=== PATIENT | female | born 1990 | race Caucasian/White ===

== ENCOUNTER → 2021-05-27 12:46 | Outpatient (CLI) | payer OTHER, SELFPAY ==
--- NOTE | ~2021-05-27 | US_ITS ---
EXAMINATION: US OB /maternal detail EXAM DATE: 05/27/2021 13:36 INDICATION: Anatomy. 2nd trimester. TECHNIQUE: Pelvic obstetrical transabdominal sonogram was performed by a technologist. There are mu ltiple grayscale and Doppler images available for interpretation. There are no earlier studies of is gestation for comparison. FINDINGS: There is a single fetus identified in vertex presentation with a heart rate of 146 beats pe r minute. The placenta is located in the posterior position. There is no sonographic evidence of ret roplacental hemorrhage identified. There is subjectively expected amount of amniotic fluid. Placenta l margin to internal cervical os distance is 5.5 cm. BIOMETRIC DATA: Biparietal diameter (BPD): 4.5 cm ----------------> 19 weeks 4 days. Head circumference (HC): 17.1 cm ----------------> 19 weeks 5 days. Abdominal circumference (AC): 14.6 cm ----------> 19 weeks 6 days. Femur length (FL): 2.9 cm --------------------------> 18 weeks 5 days. These measurements are concordant. HC/AC ratio is 1.17 (The 5th -- 95th percentile range is 1.08-1.26. Estimated weight is 292 g +/- 44 g. This is the 23rd percentile when the currently reported cl inical gestation age 19 weeks 6 days, clinical estimated date of delivery (ALESIA-OPE) 10/15 is used. Fet al estimated gestational age based on measurements from this exam is 19 weeks 3 days, with an estimat ed date of delivery (ALESIA-AUA) 10/18. ANATOMIC SURVEY: The following anatomy suboptimally visualized: Cranium, cerebellum, lips, cervical spine due to positioning. Cardiac views. The following anatomy is identified and is sonographically normal in appearance: Nuchal fold Thoracolumbar spine Diaphragm Stomach Kidneys Bladder Three-vessel cord Cord insertion Extremities IMPRESSION: 1. Single fetus in vertex presentation with heart rate 146 beats per minute. 2. Estimated weight of 292 grams, 23rd percentile using the currently reported clinical gestat ion age of 19 weeks 6 days, ALESIA(OPE) 10/15. 3. Incomplete anatomic survey. Reviewed, dictated and finalized at location G. TER OPERATOR IMPRESSION: 1. Single fetus in vertex presentation with heart rate 146 beats per minute. 2. Estimated weight of 292 grams, 23rd percentile using the currently re ported clinical gestation age of 19 weeks 6 days, ALESIA(OPE) 10/15. 3. Incomplete anatomic survey.
== END ==
PROVIDERS: Visit Provider Nurse Practitioner
DX: Z34.92 Encounter for supervision of normal pregnancy, unspecified, second trimester (principal); Z3A.19 19 weeks gestation of pregnancy
CPT/HCPCS: 76805

== ENCOUNTER → 2021-06-23 09:48 | Outpatient (CLI) | payer OTHER, SELFPAY ==
--- NOTE | ~2021-06-23 | US_ITS ---
EXAMINATION: US OB follow up DATE: 06/23/2021 10:21 INDICATION: Second trimester anatomic survey follow-up TECHNIQUE: Real-time ultrasound of the pelvis was performed. The interpreting radiologist was not pre sent for the study. COMPARISON: 05/27/2021 FINDINGS: There is a single living fetus in breech presentation. The placenta is posterior and 5.3 cm from the internal cervical os. cardiac activity and movement are noted. heart rate is 130 beats per minute (bpm). The amniotic fluid index is subjectively normal. The intracrani al structures, upper lip, spine, and heart appear normal. The following biometric data were obtained: Biparietal diameter (BPD): 5.3 cm; head circumference (HC): 19.7 cm; abdominal circumference (AC): 17 .3 cm; femur length (FL): 4.1 cm. These measurements are concordant. Estimated weight is 521 g +/- 78 g, which correlates with the 16th percentile when 10/18/2021 is used as estimated date of delivery. As single measurements, these parameters are each equal to the following estimated gestational ages w ith ranges of +/- 2 standard deviations: BPD: 22 weeks 1 days ( 20 weeks 3 days - 23 weeks 6 days). HC: 22 weeks 0 days ( 20 weeks 3 days - 23 weeks 3 days). AC: 22 weeks 2 days ( 20 weeks 1 days - 24 weeks 2 days). FL: 23 weeks 3 days ( 21 weeks 4 days - 25 weeks 1 days). estimated gestational age based solely on measurements from this exam is 22 weeks 3 days +/- 1 weeks 4 days. IMPRESSION: 1. Single living fetus in breech presentation. 2. Estimated weight is 521 g +/- 78 g, which correlates with the 16th percentile when 10/18/2021 is used as estimated date of delivery. 3. Normal-appearing anatomy not visualized on prior ultrasound. Reviewed, dictated and finalized at location A. ACK IMPRESSION: 1. Single living fetus in breech presentation. 2. Estimated weight is 521 g +/- 78 g, which correlates with the 16th per centile when 10/18/2021 is used as estimated date of delivery. 3. Normal-appearing anatomy not visualized on prior ultrasound.
== END ==
PROVIDERS: Visit Provider Obstetrics & Gynecology Gynecology
DX: Z34.92 Encounter for supervision of normal pregnancy, unspecified, second trimester (principal); Z3A.22 22 weeks gestation of pregnancy
CPT/HCPCS: 76816

== ENCOUNTER 2021-07-23 08:02 | Outpatient (CLI) | payer OTHER, SELFPAY ==
[2021-07-23 09:25] LABS: Hematocrit 31.2 % (37.0-47.0); Hemoglobin 10.4 g/dL (12.0-15.0)
[2021-07-23 09:53] LABS: Glucose 1 Hour PP 50gm Dose 126 mg/dL
[2021-07-23 10:15] LABS: Vitamin D 25 Hydroxy 59.7 ng/mL
[2021-07-23 10:35] LABS: HIV 1/2 Ab P24 Ag Result Negative (Negative)
[2021-07-23] MEDS: RHO(D) IMMUNE GLOBULIN 300 MCG/2 ML SYRINGE IM (16:23)
== END 2021-07-23 08:03 | disposition home or self-care (01) ==
LOC: ANHLAB 08:04
PROVIDERS: Visit Provider Obstetrics & Gynecology Gynecology
DX: O36 Maternal care for other fetal problems (principal); Z3A.27 27 weeks gestation of pregnancy
CPT/HCPCS: 36415; 82306; 82947; 85014; 85018; 85461; 86703; 90384; G0432; J2790

== ENCOUNTER 2021-10-05 01:25 | Observation (INO) | payer OTHER, SELFPAY ==
[2021-10-05 01:25] VITALS: BMI 26.9
[2021-10-05 01:43] VITALS: BP 114/69; PULSE 95
[2021-10-05 02:00] VITALS: BP 120/68; PULSE 89
[2021-10-05 02:04] LABS: Creatinine Urine 32.5 mg/dL; Total Protein Urine Random 12 mg/dL; Ur Ttl Prot Creatinine Ratio 0.37 mg/mg (0-0.20)
[2021-10-05 02:05] LABS: Basophils Percent Auto 0.3 % (0.2-1.2); Eosinophils Absolute Auto 0.4 K/mm3 (0-0.3); Eosinophils Percent Auto 4.2 % (0-4.4); Hematocrit 34.4 % (37.0-47.0); Hemoglobin 11.5 g/dL (12.0-15.0); Immature Granulocyte Absolute 0.03 K/mm3 (0.00-0.031); Immature Granulocyte Percent A 0.3 % (0-0.5); Lymphocytes Absolute Auto 2.95 K/mm3 (0.9-3.2); Lymphocytes Percent Auto 34.3 % (18.3-44.2); Mean Corpuscular HGB Conc 33.4 g/dl (32-36); Mean Corpuscular Hemoglobin 29.7 pg (26-34); Mean Corpuscular Volume 88.9 fl (80-100); Mean Platelet Volume 10.8 fl (7.4-10.4); Monocytes Absolute Auto 0.5 K/mm3 (0.1-0.6); Monocytes Percent Auto 6.2 % (2.6-8.5); Neutrophils Absolute Auto 4.7 K/mm3 (1.3-6.7); Neutrophils Percent Auto 54.7 % (45.5-73.1); Platelet Count Result 218 k/mm3 (150-375); Red Blood Count 3.87 M/mm3 (4.2-5.4); White Blood Count 8.6 K/mm3 (4.5-10.0)
[2021-10-05 02:06] LABS: Appearance Urine Clear (Clear); Bilirubin Urine Negative (Negative); Blood Urine Negative (Negative); Color Urine Yellow (Yellow); Glucose Urine UA Negative (Negative); Ketones Urine Negative (Negative); Leukocyte Esterase Ur Negative LEU/UL (NEGATIVE); Nitrate Urine Negative (Negative); Protein Urine Negative (Negative); Specific Grav Ur 1.015 (1.001-1.035); Urobilinogen Urine 0.2 mg/dL (<2.0)
[2021-10-05 02:07] LABS: Alanine Aminotransferase 13 U/L (6-35); Albumin Level 3.7 g/dL (3.5-5.1); Alkaline Phosphatase 165 U/L (38-126); Anion Gap 3 mmol/L (8-16); Aspartate Amino Transferase 23 U/L (14-36); Bilirubin,Total 0.1 mg/dL (0.2-1.3); Blood Urea Nitrogen 9 mg/dL (7-17); Calcium 9.6 mg/dL (8.4-10.2); Carbon Dioxide 23 mmol/L (22-30); Chloride 107 mmol/L (98-107); Estimated Glomerular Filt Rate > 60; Glucose 86 mg/dL (65-110); Potassium 3.8 mmol/L (3.4-5.0); Sodium 133 mmol/L (137-145); Uric Acid 4.7 mg/dL (2.5-7.5)
[2021-10-05 02:15] VITALS: BP 114/67; PULSE 82
[2021-10-05 02:20] LABS: Bacteria Urine Trace /hpf; RBC Urine 0-2 /hpf (0-2); Squamous Epithelial Cell Urine Few /hpf (Few); WBC Urine 0-3 /hpf (0-3)
[2021-10-05 02:30] VITALS: BP 115/71; PULSE 101
[2021-10-05 02:45] VITALS: BP 114/71; PULSE 93
[2021-10-05 02:48] LABS: Add Urine Microscopic? NO
--- NOTE | 2021-10-05 03:00 | OBADM ---
This patient, Janessa Issa, admitted to the OB room OB Post 117 for observation. Patient/family oriented to hospital policies and general routines including ID bracelet, bed and alarms, visiting hours, pain management, procedures, bathroom and other care routines, personal items, smoking policy, room service/diet, and visiting hours. Patient/Family are encouraged to report perceived risks to care and to ask questions if they do not understand what they are told or what they should do.
[2021-10-05] MEDS: diphenhydrAMINE HCl CAP 25 MG CAPSULE PO (03:09)
--- NOTE | 2021-10-08 08:38 | PM.OBTRLD ---
OB - Triage/Final Diagnosis Visit Information Reason for evaluation: threatened labor Comments/Additional reasons for admission: I have assessed the risk for this patient, Janessa Issa, and determined that she would benefit from observation care. Evaluation Laboratory results: Laboratory Tests 10/05/21 10/05/21 10/05/21 01:48 01:48 01:48 WBC 8.6 RBC 3.87 L Hgb 11.5 L Hct 34.4 L MCV 88.9 MCH 29.7 MCHC 33.4 RDW 13.0 Plt Count 218 MPV 10.8 H Immature Gran % (Auto) 0.3 Neut % (Auto) 54.7 Lymph % (Auto) 34.3 Oliver % (Auto) 6.2 Eos % (Auto) 4.2 Baso % (Auto) 0.3 Lymph # (Auto) 2.95 Oliver # (Auto) 0.5 Eos # (Auto) 0.4 H Baso # (Auto) 0.0 Abs Immat Gran (auto) 0.03 Absolute Neuts (auto) 4.7 Absolute Nucleated RBC 0.0 Nucleated RBC % 0.0 Sodium Potassium Chloride Carbon Dioxide Anion Gap BUN Creatinine Estim Creat Clear Calc Estimated GFR Glucose Uric Acid Calcium Total Bilirubin AST ALT Alkaline Phosphatase Total Protein Albumin Urine Color Yellow Urine Appearance Clear Urine pH 7.0 Ur Specific Guinda 1.015 Urine Protein Negative Urine Glucose (UA) Negative Urine Ketones Negative Ur Blood (Man) Negative Urine Nitrate Negative Urine Bilirubin Negative Urine Urobilinogen 0.2 Ur Leukocyte Esterase Negative Urine RBC 0-2 Urine WBC 0-3 Ur Squamous Epith Cells Few Urine Bacteria Trace U Random Total Protein 12 Urine Creatinine 32.5 Protein/Creat Ratio 2 0.37 H 10/05/21 01:48 WBC RBC Hgb Hct MCV MCH MCHC RDW Plt Count MPV Immature Gran % (Auto) Neut % (Auto) Lymph % (Auto) Oliver % (Auto) Eos % (Auto) Baso % (Auto) Lymph # (Auto) Oliver # (Auto) Eos # (Auto) Baso # (Auto) Abs Immat Gran (auto) Absolute Neuts (auto) Absolute Nucleated RBC Nucleated RBC % Sodium 133 L Potassium 3.8 Chloride 107 Carbon Dioxide 23 Anion Gap 3 L BUN 9 Creatinine 0.40 L Estim Creat Clear Calc Not Reportable Estimated GFR > 60 Glucose 86 Uric Acid 4.7 Calcium 9.6 Total Bilirubin 0.1 L AST 23 ALT 13 Alkaline Phosphatase 165 H Total Protein 7.0 Albumin 3.7 Urine Color Urine Appearance Urine pH Ur Specific Guinda Urine Protein Urine Glucose (UA) Urine Ketones Ur Blood (Man) Urine Nitrate Urine Bilirubin Urine Urobilinogen Ur Leukocyte Esterase Urine RBC Urine WBC Ur Squamous Epith Cells Urine Bacteria U Random Total Protein Urine Creatinine Protein/Creat Ratio 2
[2021-10-10 10:22] LABS: Chenodeoxycholic Acid <0.5 umol/L (< OR = 3.9); Cholic Acid 0.6 umol/L (< OR = 2.8); Deoxycholic Acid <0.5 umol/L (< OR = 2.3); Total Bile Acids <1.5 umol/L (< OR = 8.3)
== END 2021-10-05 03:10 | disposition home or self-care (01) ==
PROVIDERS: Admitting Provider Obstetrics & Gynecology; Visit Provider Obstetrics & Gynecology
DX: O47.9 False labor, unspecified (principal); Z3A.00 Weeks of gestation of pregnancy not specified
CPT/HCPCS: 36415; 80053; 81003; 82542; 82570; 84156; 84550; 85025; 87086; A9270; G0378; G0379

== ENCOUNTER 2021-10-05 20:58 | Inpatient (IN) | payer OTHER, SELFPAY ==
[2021-10-05 21:20] VITALS: BP 123/82; PULSE 137
[2021-10-05 21:25] VITALS: BMI 27.2
[2021-10-05 21:30] VITALS: BP 109/76; PULSE 140
[2021-10-05 21:45] VITALS: BP 118/75; PULSE 123
[2021-10-05 22:00] VITALS: TEMP 36.9
[2021-10-05] MEDS: DINOPROSTONE 10 MG VAG INSERT VAGINAL (22:05)
[2021-10-05 22:06] LABS: Basophils Percent Auto 0.2 % (0.2-1.2); Eosinophils Absolute Auto 0.1 K/mm3 (0-0.3); Hematocrit 35.3 % (37.0-47.0); Hemoglobin 11.5 g/dL (12.0-15.0); Immature Granulocyte Absolute 0.05 K/mm3 (0.00-0.031); Immature Granulocyte Percent A 0.5 % (0-0.5); Lymphocytes Absolute Auto 2.04 K/mm3 (0.9-3.2); Lymphocytes Percent Auto 19.3 % (18.3-44.2); Mean Corpuscular HGB Conc 32.6 g/dl (32-36); Mean Corpuscular Hemoglobin 29.9 pg (26-34); Mean Corpuscular Volume 91.7 fl (80-100); Mean Platelet Volume 10.8 fl (7.4-10.4); Monocytes Absolute Auto 0.4 K/mm3 (0.1-0.6); Monocytes Percent Auto 3.5 % (2.6-8.5); Neutrophils Percent Auto 75.5 % (45.5-73.1); Platelet Count Result 209 k/mm3 (150-375); Red Blood Count 3.85 M/mm3 (4.2-5.4); Red Cell Distribution Width 13.1 % (11.5-14.5); White Blood Count 10.6 K/mm3 (4.5-10.0)
[2021-10-05] MEDS: hydrOXYzine pamoate 25 MG CAPSULE PO (22:16)
[2021-10-05 23:00] VITALS: BP 103/50; PULSE 120
[2021-10-06] VITALS (191 sets, daily range): BP systolic 80–150; BP diastolic 46–134; PULSE 83–169; RESP 16; TEMP 36.3–38.3; O2SAT 94–100
--- NOTE | 2021-10-06 00:42 | WPDANESEPP ---
Anes - Eval Pre Procedure Procedure: LAbor epidural Date/Time: 10/06/21 00:42 Surgeon: Maritza Preop Diagnosis: Abd pain with contractions Pre Op Diagnosis: IOL- Cholestasis Patient Data Age: 31 Gender: F Height: 1.63 m Weight: 72 kg Last Vital Signs Temp 98.5 F 10/05/21 22:00 Pulse 113 H 10/06/21 00:00 BP 94/49 L 10/06/21 00:00 O2 Del Method Room Air 10/05/21 21:25 Allergies Allergy/AdvReac Type Severity Reaction Status Date / Time No Known Allergies Allergy Verified 09/26/21 12:49 Home Medications Medication Instructions Recorded Confirmed Type ergocalciferol (vitamin D2) 1,250 1,250 mcg PO WEEKLY 09/26/21 09/26/21 History mcg (50,000 unit) capsule (Vitamin D2) ferrous sulfate 1 tab-cap PO DAILY 09/26/21 10/05/21 History prenat.vits,paco,cqi-tatk-zspxc 1 tablet PO DAILY 09/26/21 09/26/21 History Laboratory Tests 10/05/21 10/05/21 10/05/21 21:21 21:21 21:21 WBC 10.6 K/mm3 H K/mm3 (4.5-10.0) RBC 3.85 M/mm3 L M/mm3 (4.2-5.4) Hgb 11.5 g/dL L g/dL (12.0-15.0) Hct 35.3 % L % (37.0-47.0) MCV 91.7 fl fl (80-100) MCH 29.9 pg pg (26-34) MCHC 32.6 g/dl g/dl (32-36) RDW 13.1 % % (11.5-14.5) Plt Count 209 k/mm3 k/mm3 (150-375) MPV 10.8 fl H fl (7.4-10.4) Immature Gran % (Auto) 0.5 % % (0-0.5) Neut % (Auto) 75.5 % H % (45.5-73.1) Lymph % (Auto) 19.3 % % (18.3-44.2) Braxton % (Auto) 3.5 % % (2.6-8.5) Eos % (Auto) 1.0 % % (0-4.4) Baso % (Auto) 0.2 % % (0.2-1.2) Lymph # (Auto) 2.04 K/mm3 K/mm3 (0.9-3.2) Braxton # (Auto) 0.4 K/mm3 K/mm3 (0.1-0.6) Eos # (Auto) 0.1 K/mm3 K/mm3 (0-0.3) Baso # (Auto) 0.0 K/mm3 K/mm3 (0.0-0.1) Abs Immat Gran (auto) 0.05 K/mm3 H K/mm3 (0.00-0.031) Absolute Neuts (auto) 8.0 K/mm3 H K/mm3 (1.3-6.7) Absolute Nucleated RBC 0.0 K/mm3 K/mm3 (0.0-0.012) Nucleated RBC % 0.0 % % (0.0-0.2) RPR Pending Blood Type B Negative Antibody Screen Positive Antibody Identification Pending Antigen Identification Pending TAMMY, IgG Interpret Pending TAMMY, Poly Interpret Pending TAMMY, Complement Interp Pending Patient hx anesthesia problems: none Family hx anesthesia problems: none Results Review: All pre-operative results and documents have been reviewed as part of the pre-operative evaluation. [facility] Past Medical History Medical History Anxiety and depression Asthma Overweight (BMI 25.0-29.9) and not yet delivered Family History Family History Mother Cervical cancer Father Psoriasis Grandparent Diabetes mellitus Social History Social History Smoking status: Never smoker Second hand tobacco smoke exposure: No Substance use: never Spiritual care concerns: Yes (Pt would like to see deputy probation officer) Exam Day of Procedure 10/06/21 00:42 Patient weight: overweight Heart: regular rate and rhythm Lungs: clear to auscultation and normal air movement Airway: Mallampati scale class II Neurological: alert and oriented
[2021-10-06] MEDS: LACTATED RINGERS 1,000 ML 125 ML IV CONT ×2 (00:49→08:58)
--- NOTE | 2021-10-06 08:08 | WPDOBADMIT ---
Obstetrics - Admit Note Admission Note: record reviewed. No pertinent additions to the history and/or any subsequent changes in the physical findings that are not consistent with the expected course of the were found. Additions to the history and/or subsequent changes in the physical findings follow. Patient with cholestasis of admitted for medical induction of labor last evening. Cervidil was placed last evening and patient has been ronit throughout the night. Cervix this morning is 1/50 and -1. Cervidil was removed and AROM is performed with clear fluid. heart tones are category 1.
[2021-10-06] MEDS: OXYTOCIN 30 UNITS/NS 500 ML 30 UNITS/500 ML BAG 6 UNITS IV CONT (08:58)
[2021-10-06 11:46] LABS: Rapid Plasma Reagin Non-Reactive (NonReactive)
[2021-10-06] MEDS: AMPICILLIN 2 GM/NS 100 ML 2 GM/100 ML BAG IVPB (16:50)
[2021-10-06] MEDS: GENTAMICIN 60 MG/50 ML NS 60 MG/50 ML BAG 100 MG IVPB (17:15)
--- NOTE | 2021-10-06 20:14 | PM.OBPRVD ---
OB - Delivery Note Procedure Delivery date: 10/06/21 Events: Other (cholestasis of ) Induction method: AROM, Per Pitocin Protocol and Per Cervidil Protocol Delivery monitor: External FHT and Internal Uterine Route of delivery: Laceration Description: Perineal - 1st Degree Delivery repair: vicryl (3-0) Specimen: No Quantitative Blood Loss (ml): 50 Anesthesia type: Epidural Disposition: Floor [place] Baby Date of : 10/06/21 Weeks of gestation at delivery: 38 gender: Male presentation: vertex position: Right Occiput Anterior Placenta delivery description: Spontaneous Cord Vessel Description: 3 Vessels score one minute: 8 score five minutes: 9
--- NOTE | 2021-10-06 20:17 | PM.OBDSVD ---
DS: Admitting Diagnosis Discharge Date 10/08/21 Admitting Diagnosis IUP 38 5/7 wks cholestasis DS: Discharge Diagnosis Discharge Diagnosis (1) Cholestasis during : Code(s): O26.619 - Liver and biliary tract disorders in , unspecified trimester; K83.1 - Obstruction of bile duct Status: Acute (2) (normal spontaneous vaginal delivery): Code(s): O80 - Encounter for full-term uncomplicated delivery Status: Acute (3) 38 weeks gestation of : Code(s): Z3A.38 - 38 weeks gestation of Status: Acute OB - DS: Summary OB Procedures : NST and Ultrasound OB Procedures Intrapartum: Spontaneous Vag Delivery OB Procedures: : None Peripartum Data Infant Delivery Method: Natural Vaginal Laceration Description: Perineal - 1st Degree complications: none Status at Discharge Functional status at discharge: independent ambulation Overall status at discharge: patient is progressing back to baseline Time Spent with Patient Time attestation: Total time spent providing and/or coordinating discharge services: DS: Data Data Completed and Pending Labs on day of discharge: Labs from last 24 hours 10/05/21 10/05/21 10/05/21 21:21 21:21 21:21 WBC 10.6 H RBC 3.85 L Hgb 11.5 L Hct 35.3 L MCV 91.7 MCH 29.9 MCHC 32.6 RDW 13.1 Plt Count 209 MPV 10.8 H Immature Gran % (Auto) 0.5 Neut % (Auto) 75.5 H Lymph % (Auto) 19.3 Logan % (Auto) 3.5 Eos % (Auto) 1.0 Baso % (Auto) 0.2 Lymph # (Auto) 2.04 Logan # (Auto) 0.4 Eos # (Auto) 0.1 Baso # (Auto) 0.0 Abs Immat Gran (auto) 0.05 H Absolute Neuts (auto) 8.0 H Absolute Nucleated RBC 0.0 Nucleated RBC % 0.0 RPR Non-reactive Blood Type B Negative Antibody Screen Positive Antibody Identification Passive Due to RH Imm Glob Antigen Identification Cancelled TAMMY, IgG Interpret Negative TAMMY, Poly Interpret Negative TAMMY, Complement Interp Not Performed Discharge Plan Discharge Attending physician on discharge: Jeri Salas Discharging Clinician: Jrei Salas Anticipated Discharge Date/Time: 10/08/21 20:18 Patient Disposition: Home, Self-Care Activity: may shower and pelvic rest Diet: regular Discharge Instructions: Education: Mom and Baby Guide Given to: Follow-Up: Call your delivering provider's office for an appointment to be seen in: [facility]. Appointment Date/Time: at 10/09/21 @1230 What to expect at your follow-up visit: blood pressure check Call [phone] if you are unable to keep your appointment time. BREAST CARE: * Wear a snug supportive bra. * For engorgement discomfort: Breast Feeding: * Apply warm moist washcloths * Express milk as needed to relieve engorgement * Wear loose clothing Bottle Feeding: * May apply ice packs * For sore nipples: * Identify correct latch-on * Apply warm moist washcloths before and after nursing * Air dry nipples after nursing * May apply Lansinoh cream to nipples PERINEAL CARE: * Until bleeding stops, use your olu bottle after urinating * Change your pad frequently throughout the day * You may take sitz baths several times a day (fill your bathtub with warm water and soak for 20 minutes.) Do NOT bathe in the water * No tub baths until seen by your physician - You may shower ACTIVITY: * Rest as much as possible. * Do not exercise or lift anything heavier than your baby (such as laundry or other children.) * Avoid stairs or driving as much as possible. * Do not put anything into the vagina. No douching, tampons, or sexual activity until seen by physician. NOTIFY PHYSICIAN IF YOU HAVE ANY QUESTIONS OR IF ANY OF THE FOLLOWING S
[2021-10-06] MEDS: OXYTOCIN 30 UNITS/NS 500 ML 30 UNITS/500 ML BAG 125 UNITS IV CONT (20:25)
[2021-10-06] MEDS: IBUPROFEN 600 MG TABLET PO (22:15)
[2021-10-06] MEDS: hydrOXYzine pamoate 25 MG CAPSULE PO (23:17)
[2021-10-06] MEDS: WITCH HAZEL 40 PADS 1 PAD TOPICAL (23:17)
[2021-10-06] MEDS: BENZOCAINE 20% AER SPR (*SP) 56 GM CAN 1 SPRAY TOPICAL (23:17)
[2021-10-07] MEDS: IBUPROFEN 600 MG TABLET PO ×3 (04:46→19:15)
[2021-10-07] MEDS: hydrOXYzine pamoate 25 MG CAPSULE PO ×3 (04:47→17:30)
[2021-10-07 05:20] LABS: Hematocrit 32.9 % (37.0-47.0)
--- NOTE | 2021-10-07 07:00 | PC.NURSE ---
PT introductions made and plan of care discussed per post , pain management, breast feeding, daily care activities. PT and spouse both recipients of such instructions. No barriers to learning identified at this time. PT received such instructions this shift via one to one discussion, mom baby care guide and demonstrations. PT verbalized understanding of such care.
--- NOTE | 2021-10-07 07:31 | P.PNOB_ITS ---
OB - PN: Subj Subjective Date/time seen: 10/07/21 07:21 Patient comments: pain well controlled and other (hives) baby status: doing well, nursing well and other (Reported episode of turning blue while overnight. ) [facility] feeding status: exclusively breast feeding OB - PN: Obj Data Labs CBC & Chem 7: 10/07/21 02:31 Labs: Laboratory Results - last 24 hr 10/05/21 10/07/21 21:21 02:31 Hgb 11.0 L Hct 32.9 L RPR Non-reactive OB - PN A/P Plan day: 1 Plan: routine care Time Spent With Patient Time: Total time spent is greater than 50% in coordination of care (as documented) at patient's floor/unit and/or counseling patient: Review of Systems Review of Systems: All systems reviewed & are unremarkable except as noted in HPI and below Integumentary/Breasts: Skin/Breast: Reports pruritus and Reports other Comments: edema to hands and feet Exam Narrative: Alert and oriented. Mood is pleasant and cooperative. Urinating without difficulty. Denies passing any large clots. Perineum with minimal edema. Const: General: no acute distress Orientation/consciousness: patient oriented x3 Limitations: no limitations Resp: Effort & Inspection: normal respiratory effort Cardio: Rate: regular rate GI: Inspection: normal to inspection Skin: Rashes: other (hives to left knee, upper left thigh, neck, and back. ) Neuro: General: patient oriented x3 Extrem: General: normal to inspection, no calf tenderness, pedal edema (1+) and other (1+ edema to hands, wrists) Psych: Appearance: grossly normal Mental Status: mental status grossly normal Affect: normal affect Thought process: Normal thought process present
[2021-10-07 08:00] VITALS: BP 109/62; PULSE 94; RESP 18; TEMP 36.4; O2SAT 98
--- NOTE | 2021-10-07 08:34 | WPDANLDPN2 ---
Anes-Prog Note L&D Date/Time: 10/07/21 08:34 Comfortable throughout: labor and delivery Neuraxial method: epidural Epidural/Spinal procedure site: clean & non-tender Neuro status: Neuro function grossly intact. Cardiovascular status: normal Respiratory status: normal Airway patency: baseline Mental status: baseline Post-Op hydration status: normal Vital Signs: Last Vital Signs Temp 36.3 C L 10/06/21 23:50 Pulse 100 10/06/21 23:50 Resp 16 10/06/21 23:50 BP 122/72 10/06/21 23:50 Pulse Ox 97 10/06/21 19:59 O2 Del Method Room Air 10/05/21 21:25 Pain score (VAS): 2 I/O: Intake & Output 10/06/21 10/07/21 10/07/21 23:59 07:59 15:59 Intake Total 1400 Output Total 102 Balance 1298 Post-procedural complaints: none Patient feedback: Patient satisfied with anesthetic care.
[2021-10-07] MEDS: LORATADINE 10 MG TABLET (08:46)
[2021-10-07] MEDS: ACETAMINOPHEN 325 MG TABLET 650 MG PO ×2 (09:04→17:28)
[2021-10-07] MEDS: DOCUSATE SODIUM 100 MG CAPSULE PO ×2 (09:06→17:30)
[2021-10-07] MEDS: MULTIVIT/MIN/PREN/FOL AC/IRON TABLET 1 TAB PO (09:07)
[2021-10-07] MEDS: LANOLIN (LANSINOH) 7.5 GM CREAM 1 APPLIC TOPICAL (09:08)
--- NOTE | 2021-10-07 12:32 | PC.NURSE ---
[id number] Introductions were made, then consulted with patient to assess needs related to . Mother led the conversation with her experience feeding her so far. Mother works well with her with encouragement and education. Encouraged understanding of the benefits of skin to skin (unwrapping and placing vertically on her chest), responsive feeding and how to watch for early feeding signs, frequency of feeding on demand about every 8-12 times in 24 hours (every 2-3 hours), milk production, duration of feeding, signs of adequate intake/output and how to record on the feeding sheet. Reviewed positioning and ear, shoulder, hip alignment, supporting the breast, asymmetrical latch (off-center), and leading with the chin with a big open side gape. Infant latched optimally to the left breast in cross cradle position. Education given to mother of how to visualize suck/swallow ratios and drinking at the breast. was able to maintain latch without discomfort to mother. Mother voiced that the latch was more comfortable than before and wasn't' sure if it was pinchy or tender from previous nursing. Infant has lips flanged, nice rounded cheek line, rocking motion with nursing, good positioning skin to skin and close to mother's body with chin buried into the breast, nose near the breast with appropriate suck/swallow pause ratios visualized. Nipple care reviewed with optimal latch, good positioning and practice changing positions. Reviewed good handwashing when or touching the breast/nipples to prevent infection. Resources used to facilitate learning were used with the visual handouts/mom and baby guide. Mother voiced understanding of responsive feedings, stimulating with skin to skin, hand expressed colostrum, touch, talking to infant to encourage if it has been 2 -3 hours since the start of the last , to call if does not latch or there is discomfort with . Father of baby is actively involved. Reported to the primary RN
[2021-10-07 12:49] VITALS: BP 85/54; PULSE 94; RESP 16; TEMP 36.6; O2SAT 98
--- NOTE | 2021-10-07 14:30 | PC.NURSE ---
[id number] Consulted with patient to assess needs related to . Mother led conversation with her experience with feeding baby so far and is having difficulty getting to wake and breastfeed. Reviewed tips and techniques to stimulate infant to wake and breastfeed. Mother works well with her infant with encouragement. Reviewed working with infant, breast, nipples and how to protect the nipples with an optimal deep latch, good positioning, and good hand washing. Encouraged understanding the benefits of skin to skin, responding to feeding cues, frequencies of feeding 8-12 times in 24 hours (approximately 2-3 hours), duration of feedings, milk production, intake/output feeding sheet and signs of adequate intake encouraging swallowing at the breast. Reviewed positioning and alignment, supporting breast, off-centered (asymmetrical latch) and leading with the chin with big open wide gape. latched optimally to the right breast in cross cradle position. Education given to mother of how to visualize suck/swallow ratios and drinking at the breast. Infant was able to maintain latch without discomfort to mother. Nipple care reviewed with optimal latch and good positioning, comfort, healing with warm, wet washcloth to rinse breast, then leave open to air-dry, colostrum may be left on nipples to dry but have clean hands when touching the nipple/breast as needed. Mother voiced understanding of the education shared, calling for assistance if the does not latch or if there is discomfort with . Reported to the primary RN
[2021-10-07 15:00] VITALS: BP 85/54; PULSE 94; RESP 16; TEMP 36.6; O2SAT 98
[2021-10-07] MEDS: methylPREDNISolone (MEDROL) DOSEPACK 4 MG TABLETS PO ×4 (15:41→21:00)
[2021-10-07 19:15] VITALS: BP 118/73; PULSE 90; RESP 16; TEMP 36.6; O2SAT 99
--- NOTE | 2021-10-08 07:00 | PC.NURSE ---
PT introductions made and plan of care discussed per post , pain management, breast feeding, daily care activities and pending discharge to home. PT and spouse both recipients of such instructions. No barriers to learning identified at this time. PT received such instructions this shift via one to one discussion, mom baby care guide and demonstrations. PT verbalized understanding of such care.
[2021-10-08 08:20] VITALS: BP 117/66; PULSE 80; RESP 18; TEMP 37; O2SAT 100
[2021-10-08] MEDS: DOCUSATE SODIUM 100 MG CAPSULE PO (10:07)
[2021-10-08] MEDS: MULTIVIT/MIN/PREN/FOL AC/IRON TABLET 1 TAB PO (10:07)
[2021-10-08] MEDS: methylPREDNISolone (MEDROL) DOSEPACK 4 MG TABLETS PO (10:07)
[2021-10-08 10:08] VITALS: PULSE 80; RESP 18; TEMP 37.3; O2SAT 100
[2021-10-08] MEDS: IBUPROFEN 600 MG TABLET PO (10:08)
--- NOTE | 2021-10-08 10:52 | PM.OBPNVD ---
OB - PN: Subj Subjective Date/time seen: 10/08/21 10:52 Patient comments: no complaints and pain well controlled baby status: doing well OB - PN: Obj Data Labs CBC & Chem 7: 10/07/21 02:31 OB - PN A/P Plan day: 2 Plan: routine care, discharge home, follow up 6 weeks and other (plans frankie Wiggins) Time Spent With Patient Time: Total time spent is greater than 50% in coordination of care (as documented) at patient's floor/unit and/or counseling patient: Exam : Bimanual exam- vagina & uterus: other (Uterus firm, nt @U)
--- NOTE | 2021-10-08 14:54 | PC.NURSE ---
[id number] - Mother led the conversation with her experience and plan to feed her so far and her ability to independently latch optimally without discomfort. Reminded parents to use good handwashing technique to prevent infection. Mother is feeding appropriately for growth of infant and understands stimulating to eat if needed. has had appropriate feedings in the last 24 hours meets the outcomes for weight, output and jaundice at this time. Mother states she is confident to continue effectively her infant at home or when to call for assistance and denies any additional assistance or education at this time. Reinforced understanding of milk production, transition of milk, signs of adequate intake, prevention/relief of engorgement, responsive after visualizing feeding cues, the different methods of stimulating to breastfeed 2-3 hours after the start of the last feeding, community resources, medication information reviewed per [employer] and when to call a provider using the resource of the mom and baby guide/[facility] website. Mother voiced understanding of the education shared.
[2021-10-09 12:20] VITALS: BP 115/78; PULSE 97; RESP 18; TEMP 36.9; O2SAT 99
== END 2021-10-08 16:11 | disposition home or self-care (01) | DRG 805 ==
LOC: ANHLDR 10-06 20:19 → ANHOB2 10-07 00:12
PROVIDERS: Advanced Practice Midwife; Admitting Provider Obstetrics & Gynecology Gynecology; Visit Provider Obstetrics & Gynecology Gynecology
DX: O26.62 Liver and biliary tract disorders in childbirth (principal); K83.1 Obstruction of bile duct; Z37.0 Single live birth; Z3A.38 38 weeks gestation of pregnancy; O70.0 First degree perineal laceration during delivery; O36.8330 Maternal care for abnormalities of the fetal heart rate or rhythm, third trimester, not applicable or unspecified
CPT/HCPCS: 36415; 80053; 81003; 82542; 82570; 84156; 84550; 85014; 85018; 85025; 86592; 86850; 86880; 86900; 86901; 86902; 87086; 88307; A9270; G0378; G0379; J0131; J0290; J1580; J2590; J2795; J7120

== ENCOUNTER → 2023-04-22 14:27 | Outpatient (CLI) | payer OTHER, SELFPAY ==
--- NOTE | ~2023-04-22 | XR_ITS ---
EXAMINATION: XR chest 2V DATE: 04/22/2023 14:38 INDICATION: Cough and wheezing TECHNIQUE: PA and lateral views of the chest are obtained. COMPARISON: None available FINDINGS: There are airspace opacities of the left lower lobe. No pleural effusion or pneumothorax. T he cardiomediastinal silhouette is normal. The visualized bones and soft tissues are unremarkable. IMPRESSION: 1. Left lower lobe airspace opacity, consistent with pneumonia. Reviewed, dictated and finalized at location B. PHONE ORDER CLERK ROOM SERVICE
== END ==
PROVIDERS: PCP Physician Assistant Medical; Visit Provider Physician Assistant Medical
DX: R91.8 Other nonspecific abnormal finding of lung field (principal); R06.2 Wheezing
CPT/HCPCS: 71046

== ENCOUNTER 2025-01-25 13:53 | Outpatient (CLI) | payer BC, SELFPAY ==
--- NOTE | ~2025-01-25 | US_ITS ---
EXAMINATION: US OB <= 14 weeks fetus DATE: 01/25/2025 INDICATION: Uncertain dates. . TECHNIQUE: Real-time transabdominal pelvic ultrasound was performed. COMPARISON: None. FINDINGS: The uterus measures 11.7 x 5.2 x 7.2 cm. There is an intrauterine gestational sac. A yolk sac is identified. The crown rump length measures 1.6 cm, which correlates with an estimated gestational age of 8 weeks and 0 day(s) (+/-) 5 day(s). heart motion is identified measuring 169 beats per minute (bpm) by M-mode Doppler. The right ovary measures 3.1 x 1.4 x 1.8 cm. The left ovary measures 2.3 x 2.0 x 2.3 cm. There is no free fluid in the pelvis. IMPRESSION: 1. Single living intrauterine gestation with estimated date of delivery of 09/06/2025. Reviewed, dictated and finalized at location E. IMPRESSION: 1. Single living intrauterine gestation with estimated date of delivery of 08/23.
== END 2025-01-25 13:54 | disposition home or self-care (01) ==
PROVIDERS: PCP Obstetrics & Gynecology Gynecology; Visit Provider Obstetrics & Gynecology Gynecology
DX: Z36.87 Encounter for antenatal screening for uncertain dates (principal)
CPT/HCPCS: 76801

== ENCOUNTER 2025-04-08 15:55 | Outpatient (CLI) | payer BC, SELFPAY ==
--- NOTE | ~2025-04-08 | US_ITS ---
EXAM/PROCEDURE: US OB /maternal detail HISTORY: Anatomy screening COMPARISON: January 25, 2025 TECHNIQUE: OB anatomical survey FINDINGS: A single viable intrauterine gestation is present with heart rate of 157 bpm Presentation: Breech The placenta is posterior with the inferior tip approximately 3.2 cm removed from the internal os. The cervix appears closed and measures 3.6 cm. EGA by dates and ultrasound 19 weeks 0 days and 19 weeks 2 days EDC by dates and ultrasound September 02 and August [id number] Biometric ratios within normal limits. EFW: 285.33 g. EFW percentile 64.3% HIRO: Subjectively within normal limits. Visualized portions of the intracranial contents, upper lip, spine, four- chamber view of the heart, diaphragm, stomach kidneys urinary bladder three- vessel cord insertion and extremities appear within normal limits. IMPRESSION: 1. Single viable intrauterine gestation with heart rate of 157 bpm and concordant dates. 2. Anatomic survey within normal limits with no gross anomaly identified. 3. Potentially low-lying posterior placenta; the inferior tip is 3.2 cm removed from the internal os. Reviewed, dictated and finalized at location A. OR SYSTEMS ANALYST IMPRESSION: 1. Single viable intrauterine gestation with heart rate of 157 bpm and concorda nt dates. 2. Anatomic survey within normal limits with no gross anomaly identified. 3. Potentially low-lying posterior placenta; the inferior tip is 3.2 cm removed from the internal os.
== END 2025-04-08 15:56 | disposition home or self-care (01) ==
LOC: MICIMG 15:57
PROVIDERS: PCP Obstetrics & Gynecology Gynecology; Visit Provider Obstetrics & Gynecology Gynecology
DX: Z36.9 Encounter for antenatal screening, unspecified (principal); Z3A.00 Weeks of gestation of pregnancy not specified
CPT/HCPCS: 76805